=== PATIENT | male | born 1995 | race Two or more races ===

== ENCOUNTER 2019-01-20 10:55 | Emergency (ER) | payer MEDICAID ==
[~2019-01-20] VITALS: Ht 172.7 cm; Wt 59.0 kg
--- NOTE | 2019-01-20 11:08 | NUR ---
ED Nurse Note: Pt walked in ER due to R ankle swelling x 2 days, pulse felt strongly. Pain 10/10. Suspected the swelling is " from wearing work boot". AOx4, VSS eddie. Will cont to monitor.
[2019-01-20] MEDS ORDERED: CEPHALEXIN500 MG ORAL (12:53)
[2019-01-20] MEDS ORDERED: BACTRIM DS TAB1 EAC1 ORAL (12:53)
--- NOTE | 2019-01-20 13:00 | NUR ---
ER DISCHARGE NOTE: Patient is cleared to be discharged per ERMD, pt is aox4, on room air, with stable vital signs. pt was given dc and prescription instructions, pt was able to verbalize understanding, pt is able to ambulate with steady gait. pt took all belongings.
--- NOTE | 2019-01-20 13:15 | Diagnostic Imaging Report ---
Indication: Right ankle pain Comparison: None Findings: 2 views of the right ankle obtained. No acute fracture, malalignment, periostitis, or osteochondral defects are identified. Soft tissues are unremarkable. Impression: No acute findings on this examination
--- NOTE | 2019-01-20 13:43 | Emergency Room Report ---
History of Present Illness General Chief Complaint: Lower Extremity Injury Source: Patient Present Illness HPI Patient presents emergency department today complaint right ankle pain. Patient states that he injured his right ankle by wearing shoes that were too tight and he has an abrasion on the right ankle. He noticed a wound form over the last couple of days and the swelling has become worse of the right ankle. It does appear slightly erythematous. He denies any discharge. Denies any fall or trauma. Denies any fever nausea vomiting diarrhea chills. No other complaints are noted. Symptoms are moderate. No other modifying factors. No other associated signs and symptoms. No other complaints were noted. Allergies: Coded Allergies: No Known Allergies (Unverified , 01/20/19) Patient History Past Medical History: none Past Surgical History: none Pertinent Family History: none Social History: Denies: smoking, alcohol use, drug use Reviewed Nursing Documentation: PMH: Agreed; PSxH: Agreed Nursing Documentation-PMH Past Medical History: No Stated History Review of Systems All Other Systems: negative except mentioned in HPI Physical Exam Vital Signs Date Time Temp Pulse Resp B/P (MAP) Pulse Ox O2 Delivery O2 Flow Rate FiO2 01/20/19 10:59 98.2 76 19 102/57 (72) 97 Room Air Sp02 EP Interpretation: reviewed, normal General Appearance: normal inspection, well appearing, no apparent distress, alert Head: atraumatic Eyes: bilateral eye normal inspection ENT: normal ENT inspection, hearing grossly normal, normal voice Neck: normal inspection, full range of motion, supple, no bony tend Respiratory: normal inspection, lungs clear, normal breath sounds, no respiratory distress, no retraction, no wheezing Cardiovascular #1: regular rate, rhythm, no edema Gastrointestinal: normal inspection, normal bowel sounds, non tender, soft, no guarding, no hernia Genitourinary: no CVA tenderness Musculoskeletal: back normal, swelling - Right ankle lateral aspect abrasion as well erythematous tender Neurologic: normal inspection, alert, responsive, speech normal Psychiatric: normal inspection, judgement/insight normal, mood/affect normal Skin: other - Ankle swelling. Procedures Splinting Splinting : Consent: Verbal Location: Right ankle Pre-Made Type: JERMAINE wrap Pre-Proc Neuro Vasc Exam: normal Post-Proc Neuro Vasc Exam: normal Patient Tolerated: Well Complications: None Medical Decision Making Diagnostic Impression: Primary Impression: Cellulitis of right ankle ER Course Who presents emergency department today complaining of right ankle pain and swelling. Differential considerations include abscess, cellulitis, abrasion, DVT. Patient's exam consistent with mild cellulitis right ankle. X-rays were obtained which were negative for any fracture. Patient was started on antibiotics. Jermaine bandage was applied. Patient was advised follow-up primary care physician. Patient was advised to raise his leg and take some time off from work. Patient is advised to follow up with primary doctor in 2-3 days and return the emergency room for any worsening symptoms and as needed. Last Vital Signs Date Time Temp Pulse Resp B/P (MAP) Pulse Ox O2 Delivery O2 Flow Rate FiO2 01/20/19 10:59 98.2 76 19 102/57 (72) 97 Room Air Status: improved Disposition: HOME, SELF-CARE Condition: Stable Scripts Trimethoprim/Sulfamethoxazole 160/800* (BACTRIM DS TABLET*) 1 Each Tablet 1 TAB ORAL Q12H, #14 TAB 0 Refills Prov: Danish Guzmán MD 01/20/19 Cephalexin* (KEFLEX*) 500 Mg Capsule 500 MG ORAL EVERY 6 HOURS for 7 Days, CAP Prov: Danish Guzmán MD 01/20/19 Referrals: NOT CHOSEN IPA/,REFERRING (PCP) Departure Forms: Return to Work Return to Work Date: Jan 27, 2019 Patient Instructions: Cellulitis, Ankle Sprain Danish Guzmán MD Jan 20, 2019 13:43
[2019-01-20 13:46] VITALS: BP 102/57
== END 2019-01-20 13:00 | disposition home or self-care (01) ==
LOC: EMR 12:55
DX: L03.115 Cellulitis of right lower limb (principal)
CPT/HCPCS: 99283